=== PATIENT | male | born 2000 | race Hispanic/Latino ===

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

== ENCOUNTER 2022-04-16 07:53 | Emergency (ER) | payer OTHER, SELFPAY ==
[2022-04-16] MEDS ORDERED: Ketorolac Tromethamine 30 MG/ML VIAL ONE (09:14)
== END 2022-04-16 09:54 | disposition home or self-care (01) ==
LOC: ERS 07:53
DX: J03.90 Acute tonsillitis, unspecified (principal)
CPT/HCPCS: 87081; 87430; 96372; 99284; J1885